=== PATIENT | female | born 1940 | race Caucasian/White ===

== ENCOUNTER 2023-12-30 19:20 | Inpatient (IN) | payer OTHER ==
[2023-12-30 21:22] LABS: BASO % 0.3 % (0-2.0); EOS % 3.2 % (0-4.5); HEMOGLOBIN 12.5 GM/dL (10.7-15.3); LYMPH % 37.9 % (8-40); MCH 31.2 pg (25.7-33.7); MCHC 33.7 g/dl (32.0-36.0); MEAN CELL VOLUME 92.6 fl (80-96); MEAN PLT VOLUME 9.3 fl (7.5-11.1); NEUT % 44.6 % (42.8-82.8); PLATELET COUNT 240 10^3/uL (134-434); RBC 3.99 M/mm3 (3.60-5.2); RDW 14.8 % (11.6-15.6); WHITE BLOOD COUNT 5.1 K/mm3 (4.0-10.0)
[2023-12-30 21:35] LABS: INR 1.04 (0.83-1.09); PROTHROMBIN TIME (PATIENT) 11.7 SEC (9.7-13.0)
[2023-12-30 21:37] LABS: ACTIVATED PTT 34.5 SECONDS (25.2-36.5)
[2023-12-30 21:41] LABS: POTASSIUM 4.6 mmol/L (3.5-5.1)
[2023-12-30 21:46] LABS: ALBUMIN 2.7 g/dl (3.4-5.0); BLOOD UREA NITROGEN 37.4 mg/dL (7-18); CALCIUM 9.6 mg/dL (8.5-10.1); MAGNESIUM 2.1 mg/dL (1.8-2.4)
[2023-12-30 21:47] LABS: EPI CELLS 6 /uL (0-25.1); HYALINE CASTS 7 /uL (0-3.1); URINE APPEARANCE TURBID; URINE BACTERIA 4244 /uL (0-1359); URINE BILIRUBIN NEGATIVE (NEGATIVE); URINE COLOR YELLOW; URINE GLUCOSE (UA) NEGATIVE (NEGATIVE); URINE KETONE NEGATIVE (NEGATIVE); URINE LEUK ESTERASE 3+ (NEGATIVE); URINE NITRITE NEGATIVE (NEGATIVE); URINE PROTEIN 1+ (NEGATIVE); URINE UROBILINOGEN 0.2 mg/dL (0.2-1.0); URINE WBC 15972 /uL (0-25.8)
[2023-12-30 21:48] LABS: PHOSPHOROUS 3.3 mg/dL (2.5-4.9)
[2023-12-30 21:49] LABS: BILIRUBIN,TOTAL 0.4 mg/dL (0.2-1); CREATININE 1.6 mg/dL (0.55-1.3)
[2023-12-30 21:50] LABS: TOT PROT 6.9 g/dl (6.4-8.2)
[2023-12-30] MEDS ORDERED: CEFTRIAXONE 1 GM/50 ML BAG ONE (22:25)
[2023-12-30 23:06] LABS: URINE RBC 266 /uL (0-23.9); YEAST NONE SEEN (NEGATIVE)
[2023-12-31] MEDS ORDERED: ACETAMINOPHEN 500 MG TABLET (FP) PO PRN (04:56)
[2023-12-31] MEDS ORDERED: ALBUTEROL SO4 HFA INHALER IH PRN (05:07)
[2023-12-31] MEDS: LEVOTHYROXINE NA 125 MCG TABLET (FP) PO SCH (06:20)
[2023-12-31] MEDS: INSULIN ASPART SLIDING SCALE (NOVOLOG) 1 VIAL SQ SCH (06:20)
[2023-12-31 06:57] VITALS: BMI 27.4
[2023-12-31 08:26] LABS: MCH 30.3 pg (25.7-33.7); MCHC 32.3 g/dl (32.0-36.0); MEAN CELL VOLUME 93.8 fl (80-96); MEAN PLT VOLUME 8.7 fl (7.5-11.1); PLATELET COUNT 258 10^3/uL (134-434); POTASSIUM 4.7 mmol/L (3.5-5.1); RBC 3.95 M/mm3 (3.60-5.2); RDW 14.1 % (11.6-15.6); WHITE BLOOD COUNT 6.5 K/mm3 (4.0-10.0)
[2023-12-31 08:35] LABS: ALBUMIN 2.6 g/dl (3.4-5.0); CALCIUM 9.6 mg/dL (8.5-10.1); MAGNESIUM 2.2 mg/dL (1.8-2.4)
[2023-12-31 08:36] LABS: BLOOD UREA NITROGEN 37.3 mg/dL (7-18)
[2023-12-31 08:38] LABS: CREATININE 1.5 mg/dL (0.55-1.3); PHOSPHOROUS 3.1 mg/dL (2.5-4.9)
[2023-12-31 08:40] LABS: BILIRUBIN,TOTAL 0.6 mg/dL (0.2-1); TOT PROT 6.5 g/dl (6.4-8.2)
[2023-12-31] MEDS: CEFTRIAXONE 1 GM in DEXTROSE 5%-WATER - 50 ML IVPB SCH (09:48)
[2023-12-31] MEDS: SENNOSIDES 8.6MG TABLET (FP) PO SCH (09:49)
[2023-12-31] MEDS: POLYETHYLENE GLYCOL (HEALTHYLAX) 3350 17 GM PACKET PO SCH (09:49)
[2023-12-31] MEDS: DOCUSATE SODIUM 100 MG CAPSULE (FP) PO SCH (09:49)
[2023-12-31] MEDS ORDERED: CEFTRIAXONE 1 GM in DEXTROSE 5%-WATER - 100 ML IVPB ONE (10:00)
[2023-12-31] MEDS: PANTOPRAZOLE SODIUM 40 MG VIAL IVPUSH SCH (10:35)
[2023-12-31] MEDS: TIMOLOL 0.5% OPHTHALMIC SOL 5 ML BOTTLE OU SCH (11:20)
[2023-12-31] MEDS: DEXTROSE 5%-0.45% SALINE 1,000 ML IV SCH (15:51)
[2023-12-31] MEDS: D5-1/2NS+20 MEQ KCL - 20 MEQ/1,000 ML INFUS.BAG IV SCH (15:52)
[2023-12-31] MEDS: MIRTAZAPINE 15 MG TABLET (FP) PO SCH (21:42)
[2023-12-31] MEDS: GABAPENTIN 100 MG CAPSULE PO SCH (21:42)
[2024-01-01 07:57] LABS: POTASSIUM 4.5 mmol/L (3.5-5.1)
[2024-01-01 08:00] LABS: CALCIUM 9.5 mg/dL (8.5-10.1)
[2024-01-01 08:01] LABS: ALBUMIN 2.6 g/dl (3.4-5.0); BLOOD UREA NITROGEN 40.7 mg/dL (7-18)
[2024-01-01 08:04] LABS: CREATININE 1.9 mg/dL (0.55-1.3)
[2024-01-01 08:05] LABS: TOT PROT 6.4 g/dl (6.4-8.2)
[2024-01-01 08:06] LABS: BILIRUBIN,TOTAL 0.5 mg/dL (0.2-1)
[2024-01-01] MEDS: PANTOPRAZOLE 40 MG TABLET PO SCH (10:46)
[2024-01-01] MEDS ORDERED: INSULIN (NOVOLOG) ASPART 100 UNITS/ML 10ML VIAL ONE ×2 (11:35→21:28)
[2024-01-01] MEDS: DEXTROSE 5%-0.45% SALINE 1,000 ML IV SCH (11:54)
[2024-01-02 07:58] LABS: BASO % 0.5 % (0-2.0); EOS % 4.3 % (0-4.5); HEMATOCRIT 33.2 % (32.4-45.2); HEMOGLOBIN 11.3 GM/dL (10.7-15.3); LYMPH % 33.3 % (8-40); MCH 31.3 pg (25.7-33.7); MEAN CELL VOLUME 92.1 fl (80-96); MEAN PLT VOLUME 8.7 fl (7.5-11.1); MONO % 12.2 % (3.8-10.2); NEUT % 49.7 % (42.8-82.8); PLATELET COUNT 221 10^3/uL (134-434); RBC 3.61 M/mm3 (3.60-5.2); WHITE BLOOD COUNT 5.2 K/mm3 (4.0-10.0)
[2024-01-02 08:11] LABS: POTASSIUM 4.4 mmol/L (3.5-5.1)
[2024-01-02 08:13] LABS: CALCIUM 9.4 mg/dL (8.5-10.1)
[2024-01-02 08:14] LABS: BLOOD UREA NITROGEN 41.2 mg/dL (7-18)
[2024-01-02 08:17] LABS: CREATININE 1.7 mg/dL (0.55-1.3)
[2024-01-02] MEDS ORDERED: INSULIN (NOVOLOG) ASPART 100 UNITS/ML 10ML VIAL ONE (21:14)
[2024-01-03 07:34] LABS: BASO % 0.6 % (0-2.0); HEMATOCRIT 33.8 % (32.4-45.2); HEMOGLOBIN 11.2 GM/dL (10.7-15.3); LYMPH % 31.7 % (8-40); MCH 30.7 pg (25.7-33.7); MEAN CELL VOLUME 92.8 fl (80-96); MEAN PLT VOLUME 8.8 fl (7.5-11.1); MONO % 11.8 % (3.8-10.2); NEUT % 51.9 % (42.8-82.8); PLATELET COUNT 211 10^3/uL (134-434); RBC 3.64 M/mm3 (3.60-5.2); RDW 14.6 % (11.6-15.6); WHITE BLOOD COUNT 5.1 K/mm3 (4.0-10.0)
[2024-01-03 07:57] LABS: POTASSIUM 4.5 mmol/L (3.5-5.1)
[2024-01-03 08:07] LABS: BLOOD UREA NITROGEN 34.2 mg/dL (7-18); CALCIUM 9.3 mg/dL (8.5-10.1)
[2024-01-03 08:11] LABS: CREATININE 1.5 mg/dL (0.55-1.3)
[2024-01-04 13:57] VITALS: BP 97/75; PULSE 65; RESP 17; TEMP 98.4
== END 2024-01-04 13:57 | DRG 690 ==
LOC: JER 19:20 → JERBED 12-31 00:38 → OBSVTOIN 12-31 04:43 → J7W 12-31 04:43
PROVIDERS: ADMIT Internal Medicine; ATTEND Family Medicine
DX: N13.6 Pyonephrosis (principal); N17.9 Acute kidney failure, unspecified; J45.909 Unspecified asthma, uncomplicated; J44.9 Chronic obstructive pulmonary disease, unspecified; F03.90 Unspecified dementia, unspecified severity, without behavioral disturbance, psychotic disturbance, mood disturbance, and anxiety; E11.22 Type 2 diabetes mellitus with diabetic chronic kidney disease; E03.9 Hypothyroidism, unspecified; I12.9 Hypertensive chronic kidney disease with stage 1 through stage 4 chronic kidney disease, or unspecified chronic kidney disease; N18.9 Chronic kidney disease, unspecified; E78.5 Hyperlipidemia, unspecified; K21.9 Gastro-esophageal reflux disease without esophagitis; B96.20 Unspecified Escherichia coli [E. coli] as the cause of diseases classified elsewhere; M48.00 Spinal stenosis, site unspecified; R33.9 Retention of urine, unspecified; R31.9 Hematuria, unspecified
CPT/HCPCS: 36415; 74176-TC; 80048; 80053; 81003; 82570; 82962; 83735; 84100; 84300; 84443; 85025; 85027; 85610; 85730; 86850; 86900; 86901; 87086; 87186; 93005; 93010; 99285-25; G0378